=== PATIENT | female | born 1990 | race Caucasian/White ===

== ENCOUNTER 2018-03-12 18:58 | Emergency (ER) | payer OTHER ==
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
[2018-03-12 19:25] VITALS: BP 118/73
[2018-03-12] MEDS: ONDANSETRON HCL 4 MG TAB.RAPDIS PO ONE (19:26)
[2018-03-12] MEDS: KETOROLAC TROMETHAMINE 60 MG/2 ML VIAL IM ONE (19:54)
--- NOTE | 2018-03-13 05:50 | Diagnostic Imaging Report ---
SARAH POSEY [facility] [id number] [facility] [address] [place] [address]. [id number] Report Submission Date: Mar 12, 2018 7:45:02 PM CDT Patient Study Name: EVERTNO BURCH Date: Mar 12, 2018 7:28:24 PM CDT Modality Type: CT\SR Gender: F Description: CT BRAIN W/O CONTRAST : 89 Institution: [facility] Physician: SARAH POSEY CT brain without IV contrast Clinical history: Trauma Mastoid air cells and visible sinuses are clear except for a mucosal thickening of the left frontal sinus. No visible skull fractures. No visible intracranial bleed, acute infarct, midline shift or hydrocephalus. No visible tumor mass. Impression: Mucosal opacification of the left frontal sinus Otherwise normal CT brain without IV contrast Electronically signed on Mar 12, 2018 7:45:02 PM CDT by: Augustin LAYTON
== END 2018-03-12 20:05 | disposition home or self-care (01) ==
LOC: ED 18:58
DX: S09.90XA Unspecified injury of head, initial encounter (principal); X58.XXXA Exposure to other specified factors, initial encounter; Y92.9 Unspecified place or not applicable; Y93.E6 Activity, residential relocation; Y99.9 Unspecified external cause status
CPT/HCPCS: 70450; 81025; A9270; J1885; 96372